=== PATIENT | female | born 1990 | race African-American/Black ===

== ENCOUNTER 2020-06-08 16:07 | Emergency (ER) | payer SELFPAY ==
[2020-06-08] MEDS ORDERED: ZIPRASIDONE MESYLATE 20 MG VIAL IM ONE ×2 (16:52→16:54)
--- NOTE | 2020-06-08 16:59 | Emergency Department Report ---
ED Psych HPI - General Chief Complaint: Psych Stated Complaint: MH EVAL Time Seen by Provider: 06/08/20 16:45 Source: EMS Mode of arrival: Stretcher - History of Present Illness Initial Comments: Patient is unknown age and unknown name at this moment. Patient brought to the emergency room via EMS for psychiatric evaluation. Patient is found outside a gas station pulling down her pants and waving to strangers with bizarre behaviors. Upon arrival to the ER patient is slightly agitated and refusing to talk. Patient is obviously responding to internal stimuli. Patient became very agitated and started shouting and became loud and aggressive. Patient given Geodon 10 mg IM for chemical restraint. MD Complaint: altered mental status Associated Psychiatric Symptoms: racing thoughts, auditory hallucinations - Related Data Allergies Allergy/AdvReac Type Severity Reaction Status Date / Time Unable to Assess Allergy Unverified 06/08/20 16:12 ED Review of Systems ROS: Stated complaint: MH EVAL Other details as noted in HPI Comment: Unobtainable due to pts medical conditions ED Physical Exam - General Limitations: Altered Mental Status General appearance: alert, in no apparent distress - Head Head exam: Present: atraumatic, normocephalic, normal inspection - Eye Eye exam: Present: normal appearance, PERRL - ENT ENT exam: Present: normal exam, normal orophraynx, mucous membranes moist - Neck Neck exam: Present: normal inspection, full ROM. Absent: tenderness, meningismus - Respiratory Respiratory exam: Present: normal lung sounds bilaterally - Cardiovascular Cardiovascular Exam: Present: regular rate, normal rhythm, normal heart sounds - GI/Abdominal GI/Abdominal exam: Present: soft, normal bowel sounds. Absent: distended, tenderness, guarding, rebound, rigid, organomegaly, mass, bruit, pulsatile mass, hernia - Extremities Exam Extremities exam: Present: normal inspection, full ROM, normal capillary refill. Absent: pedal edema, calf tenderness - Back Exam Back exam: Present: normal inspection, full ROM. Absent: CVA tenderness (R), CVA tenderness (L) - Neurological Exam Neurological exam: Present: alert, altered - Psychiatric Psychiatric exam: Present: agitated, manic - Skin Skin exam: Present: warm, intact, normal color ED Course Vital Signs 06/08/20 16:50 Temperature 97.9 F Pulse Rate 104 H Respiratory 18 Rate Blood Pressure 111/78 [Left] O2 Sat by Pulse 100 Oximetry Critical care attestation.: If time is entered above; I have spent that time in minutes in the direct care of this critically ill patient, excluding procedure time. ED Disposition Condition: Stable
[2020-06-08 20:02] LABS: Basophils # (Auto) 0.1 K/mm3 (0.0-0.1); Basophils % (Auto) 1.3 % (0.0-1.8); Eosinophils # (Auto) 0.1 K/mm3 (0.0-0.4); Hematocrit 34.6 % (30.3-42.9); Hemoglobin 11.1 gm/dl (10.1-14.3); Lymphocytes # (Auto) 2.6 K/mm3 (1.2-5.4); Lymphocytes % (Auto) 28.5 % (13.4-35.0); Mean Corpuscular HGB Conc 32 % (30-34); Mean Corpuscular Volume 83 fl (79-97); Monocytes # (Auto) 0.8 K/mm3 (0.0-0.8); Monocytes % (Auto) 8.2 % (0.0-7.3); Platelet Count 381 K/mm3 (140-440); Red Blood Count 4.15 M/mm3 (3.65-5.03); Red Cell Distribution Width 13.1 % (13.2-15.2)
[2020-06-08 20:09] LABS: Blood Urea Nitrogen 17 mg/dL (7-17); Calcium 9.8 mg/dL (8.4-10.2); Hemolysis Index 2
[2020-06-08 20:10] LABS: BUN/Creatinine Ratio 34
--- NOTE | 2020-06-09 10:53 | Consultation ---
History of Present Illness - Reason for Consult Consult date: 06/09/20 Reason for consult: MHE Requesting physician: AGNIESZKA HARMON - History of Present Psychiatric Illness Per ED Provider: Patient is unknown age and unknown name at this moment. Patient brought to the emergency room via EMS for psychiatric evaluation. Patient is found outside a gas station pulling down her pants and waving to strangers with bizarre behaviors. Upon arrival to the ER patient is slightly agitated and refusing to talk. Patient is obviously responding to internal stimuli. Patient became very agitated and started shouting and became loud and aggressive. Patient given Geodon 10 mg IM for chemical restraint. PSYCH HPI Patient is a 29-year-old female, with unspecified by her social history and psychiatric history who presented to the ED by EMS due to having been found in a gas station pulling her pants down with bizarre behavior. This a.m. at attempt interview patient, patient continues to be incoherent, tangential and unable to complete questions. Patient states that she is waiting to be picked up, states they are trying to make a staying a place for suicidal as a month, patient also tells me to lay on the floor, because I do not have a blanket. She states she is on a 1014 and she is not narcotic. PAST PSYCHIATRIC HISTORY Diagnoses: N/A Suicide attempts or Self-harm behavior: N/A Prior psychiatric hospitalizations: N/A Substance Abuse history:N/A Previous psychiatric medications tried: N/A Outpatient treatment: N/A PAST MEDICAL HISTORY: N/A Family Psychiatric History: None reported or documented SOCIAL HISTORY Marital Status: N/A Living Arrangements: N/A Employment Status: N/A Access to guns/weapons: N/A Education: N/A History of Abuse: N/A Legal History: N/A REVIEW OF SYSTEMS ROS cannot be reliably obtained from the patient due to her confusion MENTAL STATUS EXAMINATION General Appearance and Behavior: Age appropriate, good hygiene, not wearing appropriate clothes, poor eye contact, uncooperative polite with questioning. Cooperation: withdrawn Psychomotor Behavior: Psychomotor agitation Mood: no response Affect and affective range: euthymic, euphoric Thought Process:tangential, Thought Content: Illogical, rambling Speech: pressured, loud volume at times Intellectual Functioning: Average Suicidal Ideation: Denies SI Homicidal Ideation: Denies HIl Impulse Control: Impaired Insight and Judgment: Limited insight and judgment Memory: Normal, Attention: Divided attention impaired Orientation: Alert, Diagnoses: Assessment and Plan - Psychiatric problem (1) Bipolar 1 disorder Current Visit: Yes Status: Acute Treatment Plan Patient appears manic, concern for substance-induced psychosis, UDS is still pending. MEDICATIONS: We will start patient on lithium. Risks, benefits and alternatives of medications discussed with the patient, questions answered and consent obtained from patient. PSYCHOTHERAPY: Supportive psychotherapy provided MEDICAL: Per primary team DELIRIUM PRECAUTIONS: Please re-orient patient frequently, keep lights on during the day, and minimize benzodiazepines and opiates as these medications could worsen patient's confusion. 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 Please contact with any questions and/or concerns. Medications and Allergies Allergies Allergy/AdvReac Type Severity Reaction Status Date / Time Unable to Assess Allergy Unverified 06/08/20 16:12 Mental Status Exam - Vital signs Last Vital Signs Temp 97.6 F 06/09/20 07:46 Pulse 74 06/09/20 07:46 Resp 18 06/09/20 07:46 BP 112/69 06/09/20 07:46 Pulse Ox 98 06/09/20 07:46 Results Result Diagrams: 06/08/20 19:38 06/08/20 19:38 Abnormal lab results 06/08/20 06/08/20 06/08/20 Range/Units 19:38 19:38 19:38 MCH 27 L (28-32) pg RDW 13.1 L (13.2-15.2) % Parker % (Auto) 8.2 H (0.0-7.3) % Creatinine 0.5 L (0.6-1.2) mg/dL Salicylates < 0.3 L (2.8-20.0) mg/dL Acetaminophen (10.0-30.0) ug/mL 06/08/20 Range/Units 19:38 MCH (28-32) pg RDW (13.2-15.2) % Parker % (Auto) (0.0-7.3) % Creatinine (0.6-1.2) mg/dL Salicylates (2.8-20.0) mg/dL Acetaminophen 5.0 L (10.0-30.0) ug/mL All other labs normal. Assessment and Plan - Psychiatric problem (1) Bipolar 1 disorder Current Visit: Yes Status: Acute
[2020-06-09] MEDS: LITHIUM CARBONATE 300 MG CAP PO SCH (13:38)
[2020-06-09] MEDS ORDERED: ZIPRASIDONE MESYLATE 20 MG VIAL IM ONE (15:25)
[2020-06-10] MEDS: LITHIUM CARBONATE 300 MG CAP PO SCH ×3 (08:39→22:38)
[2020-06-10] MEDS ORDERED: ZIPRASIDONE MESYLATE 20 MG VIAL IM ONE (09:53)
[2020-06-10] MEDS ORDERED: WATER FOR INJ Sterile (PF) 0 ML ONE (09:53)
[2020-06-10] MEDS ORDERED: LORazepam 2 MG/ML VIAL ONE (09:59)
[2020-06-10] MEDS ORDERED: LORazepam 2 MG/ML VIAL IM ONE (10:02)
[2020-06-10] MEDS ORDERED: ZIPRASIDONE MESYLATE 20 MG VIAL IM PRN (10:03)
--- NOTE | 2020-06-10 10:33 | Progress Note ---
Subjective - Reason for Consult Consult date: 06/10/20 Reason for consult: MHE Requesting physician: AGNIESZKA HARMON - Chief Complaint Chief complaint: Psych progress Patient seen today this a.m., patient continues to display thought disorder, tangential speech, patient saying that I am a blood soccer, present with labile mood sometimes suddenly just start crying and then later laughs. Patient reports she will looking for and I should help her find one, patient began screaming and yelling using profane words towards the staff and myself. She also has also been noncompliant with her lithium medication REVIEW OF SYSTEMS ROS cannot be reliably obtained from the patient due to her confusion MENTAL STATUS EXAMINATION General Appearance and Behavior: Age appropriate, good hygiene, not wearing appropriate clothes, poor eye contact, uncooperative polite with questioning. Cooperation: withdrawn Psychomotor Behavior: Psychomotor agitation Mood: no response Affect and affective range: euthymic, euphoric Thought Process:tangential, Thought Content: Illogical, rambling Speech: pressured, loud volume at times Intellectual Functioning: Average Suicidal Ideation: Denies SI Homicidal Ideation: Denies HIl Impulse Control: Impaired Insight and Judgment: Limited insight and judgment Memory: Normal, Attention: Divided attention impaired Orientation: Alert, Diagnoses: Assessment and Plan - Psychiatric problem (1) Bipolar 1 disorder Current Visit: Yes Status: Acute Treatment Plan Patient appears manic, concern for substance-induced psychosis, UDS is still pending. MEDICATIONS: We will start patient on lithium. Risks, benefits and alternatives of medications discussed with the patient, questions answered and consent obtained from patient. PSYCHOTHERAPY: Supportive psychotherapy provided MEDICAL: Per primary team DELIRIUM PRECAUTIONS: Please re-orient patient frequently, keep lights on during the day, and minimize benzodiazepines and opiates as these medications could worsen patient's confusion. 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 Please contact with any questions and/or concerns. Mental Status Exam - Vital signs Last Vital Signs Temp 97.6 F 06/09/20 07:46 Pulse 74 06/09/20 07:46 Resp 18 06/10/20 07:22 BP 112/69 06/09/20 07:46 Pulse Ox 99 06/10/20 07:22 Assessment and Plan - Patient Problems (1) Bipolar 1 disorder Current Visit: Yes Status: Acute
[2020-06-10] MEDS ORDERED: ZIPRASIDONE MESYLATE 20 MG VIAL IM SCH (22:00)
[2020-06-10] MEDS ORDERED: WATER FOR INJ Sterile (PF) 10 ML ONE (22:32)
[2020-06-11] MEDS: LITHIUM CARBONATE 300 MG CAP PO SCH ×2 (11:20→22:00)
[2020-06-11 16:29] LABS: Bacteria,Urine 1+ /HPF (Negative); Bilirubin,Urine NEG (Negative); Blood,Urine NEG (Negative); Color,Urine Colorless (Yellow); Protein,Urine <15 mg/dL mg/dL (Negative); RBC,Urine < 1.0 /HPF (0.0-6.0); Urobilinogen,Urine < 2.0 mg/dL (<2.0); WBC,Urine < 1.0 /HPF (0.0-6.0)
[2020-06-11 16:37] LABS: Amphetamine Screen,Urine Negative; Benzodiazepines Screen,Urine Negative; Cannabinoid Screen,Urine Negative; Cocaine Screen,Urine Negative; Methadone Screen,Urine Negative; Opiate Screen,Urine Negative
[2020-06-12 09:25] VITALS: BP 98/62
[2020-06-12] MEDS: LITHIUM CARBONATE 300 MG CAP PO SCH (11:45)
== END 2020-06-12 12:30 ==
LOC: EDBD → ED 16:07
DX: F31.9 Bipolar disorder, unspecified (principal)
CPT/HCPCS: 36415; 80048; 80307; 81001; 84703; 85025; 96372; 99285; J2060; J3486; 80320; G0480